=== PATIENT | female | born 1960 ===

== ENCOUNTER 2019-11-07 22:13 | Inpatient (IN) ==
[2019-11-08] MEDS ORDERED: DEXTROSE 50% 25 GM/50 ML VIAL IV PRN ×2 (01:34→01:39)
[2019-11-08] MEDS ORDERED: ACETAMINOPHEN 325 MG TABLET PO PRN (01:34)
[2019-11-08] MEDS ORDERED: ONDANSETRON 4 MG/2 ML VIAL IV PRN (01:34)
[2019-11-08] MEDS ORDERED: DOCUSATE SODIUM 100 MG CAPSULE PO PRN (01:34)
[2019-11-08] MEDS ORDERED: GLUCAGON 1 MG VIAL IM PRN (01:34)
[2019-11-08] MEDS ORDERED: guaiFENesin/DM ER 600-30 MG TABLET PO PRN (01:34)
[2019-11-08 02:00] LABS: Basophils % 0.4 % (0.0-0.8); Eosinophils # 0.1 10*3/uL (0.0-0.87); Eosinophils % 1.9 % (0.00-10.9); Hematocrit 29.6 VOL% (35.7-47.0); Hemoglobin 9.6 GM/DL (12.0-16.0); Immature Granulocytes % 0.9 %; Immature Granulocytes Absolute 0.05 #; Lymphocytes # 0.7 10*3/uL (1.4-4.0); Lymphocytes % 12.7 % (21.3-54.2); Mean Corpuscular HGB Conc 32.4 GM/DL (32-36); Mean Corpuscular Volume 95.8 FL (87-102); Monocytes % 10.6 % (1.7-12.7); Neutrophils % 73.5 % (38.7-73.9); Platelet Count 103 T/CUMM (130-400); Red Blood Count 3.09 MC/CUMM (3.8-5.5); Red Cell Distribution Width 14.8 % (9.3-17.3); White Blood Count 5.4 T/CUMM (4-12)
[2019-11-08 02:09] LABS: ABG HCO3 29.9 MMOL/L (20-26); ABG Oxygen Saturation 97.6 % (95-100); ABG TCO2 28.4 MMOL/L (23-27); Allen Test Positive
[2019-11-08] MEDS ORDERED: VANCOMYCIN INJ 500 MG in SODIUM CHLORIDE 0.9% 250 ML IV PRN (02:15)
[2019-11-08 02:20] LABS: Calcium 7.2 MG/DL (8.5-10.1)
[2019-11-08 02:40] LABS: Band Neutrophils 8 % (0-10); Eosinophils 1 % (0-10); Lymphocytes 15 % (20-55); Metamyelocytes 2 %; Segmented Neutrophils 66 % (50-85)
[2019-11-08 02:41] LABS: Hypochromasia 1+; Platelet Estimate Decreased
[2019-11-08 02:42] LABS: Polychromasia Few; Target Cells Few; Total Cells Counted 100
[2019-11-08] MEDS ORDERED: VANCOMYCIN INJ 1,750 MG in SODIUM CHLORIDE 0.9% 500 ML IV ONE (03:00)
[2019-11-08] MEDS: MEROPENEM 500 MG in SODIUM CHLORIDE 0.9% 100 ML IV SCH (03:09)
[2019-11-08] MEDS: ALBUTEROL/IPRATROPIUM 3 ML NEB RESP TX SCH ×6 (03:10→23:56)
[2019-11-08] MEDS: LEVOTHYROXINE 88 MCG TABLET PO SCH (06:40)
[2019-11-08] MEDS: INSULIN LISPRO 100 UNIT/ML SUBCUT SCH ×6 (08:27→21:32)
[2019-11-08] MEDS: PANTOPRAZOLE 40 MG TABLET PO SCH (09:55)
[2019-11-08] MEDS: ASPIRIN EC 81 MG TABLET PO SCH (09:55)
[2019-11-08] MEDS ORDERED: LOPERAMIDE 2 MG CAPSULE PO PRN (12:26)
[2019-11-08] MEDS ORDERED: GLIMEPIRIDE 4 MG TABLET PO SCH (13:00)
[2019-11-08] MEDS: INSULIN GLARGINE 100 UNIT/ML SUBCUT SCH (21:33)
[2019-11-08] MEDS: SEVELAMER CARBONATE 800 MG TABLET PO SCH (21:36)
[2019-11-08] MEDS: ATORVASTATIN 10 MG TABLET PO SCH (21:36)
[2019-11-09] MEDS: MEROPENEM 500 MG in SODIUM CHLORIDE 0.9% 100 ML IV SCH (02:13)
[2019-11-09] MEDS: ALBUTEROL/IPRATROPIUM 3 ML NEB RESP TX SCH ×5 (03:46→20:08)
[2019-11-09] MEDS: LEVOTHYROXINE 88 MCG TABLET PO SCH (05:30)
[2019-11-09 06:04] LABS: Basophils % 0.7 % (0.0-0.8); Eosinophils # 0.2 10*3/uL (0.0-0.87); Eosinophils % 5.4 % (0.00-10.9); Hematocrit 29.9 VOL% (35.7-47.0); Hemoglobin 9.6 GM/DL (12.0-16.0); Immature Granulocytes % 1.4 %; Immature Granulocytes Absolute 0.04 #; Lymphocytes # 0.7 10*3/uL (1.4-4.0); Mean Corpuscular HGB Conc 32.1 GM/DL (32-36); Mean Corpuscular Volume 95.8 FL (87-102); Mean Platelet Volume 9.7 FL (9.6-12.0); Monocytes % 13.6 % (1.7-12.7); Neutrophils % 54.9 % (38.7-73.9); Platelet Count 115 T/CUMM (130-400); Red Blood Count 3.12 MC/CUMM (3.8-5.5); Red Cell Distribution Width 15.4 % (9.3-17.3); White Blood Count 2.8 T/CUMM (4-12)
[2019-11-09 06:26] LABS: Calcium 7.5 MG/DL (8.5-10.1)
[2019-11-09 06:40] LABS: Band Neutrophils 4 % (0-10); Eosinophils 10 % (0-10); Lymphocytes 12 % (20-55); Segmented Neutrophils 66 % (50-85); Total Cells Counted 100
[2019-11-09 06:44] LABS: Hypochromasia 1+; Target Cells Few
[2019-11-09 06:45] LABS: Microcytosis Slight; Ovalocytes Slight; Platelet Estimate Decreased
[2019-11-09 08:03] LABS: Apearance,Urine CLOUDY (Clear); Bacteria,Urine Occasional /HPF (Few); Bilirubin,Urine Negative (Negative); Blood, Urine Small mg/dL (Negative); Glucose,Urine (UA) Negative (Negative); Ketones,Urine Negative (Negative); Nitrite,Urine Negative (Negative); Protein,Urine 100 MG/DL; RBC,Urine 23 /HPF (0-4); Squamous Epithelial Cell,Urine Few /HPF (0-10); Urine Specific Gravity 1.027 (1.001-1.035); Urine Urobilinogen < 2.0 EU/DL (0.2-1.0); WBC,Urine 3960 /HPF (0-6)
[2019-11-09 08:05] LABS: Urine Color Brown (Yellow)
[2019-11-09] MEDS: SEVELAMER CARBONATE 800 MG TABLET PO SCH ×2 (08:06→18:07)
[2019-11-09] MEDS: PANTOPRAZOLE 40 MG TABLET PO SCH (08:06)
[2019-11-09] MEDS: ASPIRIN EC 81 MG TABLET PO SCH (08:06)
[2019-11-09] MEDS: INSULIN LISPRO 100 UNIT/ML SUBCUT SCH ×7 (08:07→20:56)
[2019-11-09] MEDS ORDERED: VANCOMYCIN INJ 500 MG in SODIUM CHLORIDE 0.9% 250 ML IV ONE (18:00)
[2019-11-09] MEDS: ATORVASTATIN 10 MG TABLET PO SCH (20:55)
[2019-11-09] MEDS: INSULIN GLARGINE 100 UNIT/ML SUBCUT SCH (20:56)
[2019-11-10] MEDS: ALBUTEROL/IPRATROPIUM 3 ML NEB RESP TX SCH ×5 (01:06→14:18)
[2019-11-10] MEDS: MEROPENEM 500 MG in SODIUM CHLORIDE 0.9% 100 ML IV SCH (02:34)
[2019-11-10 04:38] LABS: Basophils % 0.3 % (0.0-0.8); Eosinophils # 0.2 10*3/uL (0.0-0.87); Eosinophils % 4.8 % (0.00-10.9); Hematocrit 29.5 VOL% (35.7-47.0); Hemoglobin 9.7 GM/DL (12.0-16.0); Immature Granulocytes % 0.6 %; Immature Granulocytes Absolute 0.02 #; Lymphocytes # 0.9 10*3/uL (1.4-4.0); Lymphocytes % 27.7 % (21.3-54.2); Mean Corpuscular HGB Conc 32.9 GM/DL (32-36); Mean Corpuscular Volume 93.7 FL (87-102); Mean Platelet Volume 9.6 FL (9.6-12.0); Monocytes % 12.5 % (1.7-12.7); Neutrophils % 54.1 % (38.7-73.9); Platelet Count 116 T/CUMM (130-400); Red Blood Count 3.15 MC/CUMM (3.8-5.5); Red Cell Distribution Width 15.5 % (9.3-17.3); White Blood Count 3.1 T/CUMM (4-12)
[2019-11-10] MEDS: LEVOTHYROXINE 88 MCG TABLET PO SCH (05:31)
[2019-11-10 06:05] LABS: Calcium 8.3 MG/DL (8.5-10.1)
[2019-11-10 06:06] LABS: Albumin 1.7 G/DL (3.4-5.0); Bilirubin,Direct 1.2 MG/DL (0.0-0.20); Bilirubin,Indirect 0.5 MG/DL (0.0-1.0); Bilirubin,Total 1.7 MG/DL (0.2-1.0); Total Protein 5.7 G/DL (6.4-8.3)
[2019-11-10 06:06] LABS: Calcium 8.2 MG/DL (8.5-10.1)
[2019-11-10] MEDS: ASPIRIN EC 81 MG TABLET PO SCH (08:04)
[2019-11-10] MEDS: SEVELAMER CARBONATE 800 MG TABLET PO SCH ×3 (08:05→16:06)
[2019-11-10] MEDS: PANTOPRAZOLE 40 MG TABLET PO SCH (08:05)
[2019-11-10] MEDS: INSULIN LISPRO 100 UNIT/ML SUBCUT SCH ×4 (08:06→15:14)
[2019-11-10] MEDS ORDERED: LEVOFLOXACIN 500 MG TABLET PO SCH (13:00)
[2019-11-10 15:42] VITALS: BP 140/58
== END 2019-11-10 16:41 | disposition home or self-care (01) | DRG 689 ==
LOC: SUATTDRO 11-08 00:46 → N.CC 11-08 00:46 → N.5E 11-08 15:14
PROVIDERS: ADMIT Internal Medicine; ATTEND Hospitalist